=== PATIENT | female | born 1935 | race Caucasian/White ===

== ENCOUNTER 2019-11-25 12:31 | Emergency (ER) | payer MEDICARE, MEDICAID, SELFPAY ==
--- NOTE | 2019-11-25 12:37 | CT_ITS ---
WS: [id number] CT HEAD NONCONTRAST HISTORY: weakness TECHNIQUE: Contiguous axial imaging performed through the brain in 2.5 mm imaging. Bone and soft tiss ue windows. Sagittal and coronal reformats reviewed. All CT scans at [facility] use at ast one of these dose optimization techniques: automated exposure control; mA and/or kV adjustment pe r patient size (includes targeted exams where dose is matched to clinical indication); or iterative r econstruction. DLP: 547.62 mGy.cm COMPARISON: 09/27/2018 No acute intracranial hemorrhage, midline shift or mass effect. Mild symmetric atrophy similar to the prior study. There is additional mild chronic microvascular isc hemic changes in the periventricular white matter. Tiny lacunar infarct in the RIGHT frontal lobe. Ventricles: Normal size with no hydrocephalus. Paranasal sinuses: As visualized are clear. Mastoid air cells: Well pneumatized. Calvarium and scalp: Skull is intact with no soft tissue edema or swelling. Severe atherosclerosis in the distal vertebral and intracranial carotid arteries. CT/CT head wo con* [id number] IMPRESSION: 1. No acute intracranial hemorrhage or edema. 2. Atrophy and chronic microvascular ischemic disease is stable. 3. Severe atherosclerosis intracranial carotid and vertebral arteries.
--- NOTE | 2019-11-25 12:37 | XRR_ITS ---
PROCEDURE INFORMATION: Exam: XR Chest, 1 View Exam date and time: 11/25/2019 1:07 PM Age: 83 years old Clinical indication: Other: Weakness TECHNIQUE: Imaging protocol: XR of the chest Views: 1 view. COMPARISON: CR Chest 1 [place] [id number] 09/27/2018 5:41 PM FINDINGS: Lungs: Unremarkable. No consolidation. Pleural space: Unremarkable. No pleural effusion. No pneumothorax. Heart/Mediastinum: Unremarkable. No cardiomegaly. Bones/joints: Unremarkable. XR/XR chest 1V portable [id number] IMPRESSION: No acute findings.
[2019-11-25 12:38] VITALS: BP 176/85; PULSE 67; RESP 20; TEMP 36.6; O2SAT 99; BMI 20.2
--- NOTE | 2019-11-25 12:38 | ECG_ITS ---
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 Measurements Intervals [place] Rate: 72 P: 77 CA: 215 QRS: 13 QRSD: 93 T: 39 QT: 436 QTc: 480 Interpretive Statements SINUS RHYTHM WITH SINUS ARRHYTHMIA WITH FIRST DEGREE AV BLOCK LEFT VENTRICULAR HYPERTROPHY AND ST-T CHANGE [VOLTAGE CRITERIA PLUS ST/T ABNORMALITY] Compared to ECG 09/27/2018 20:49:40 First degree AV block now present Left ventricular hypertrophy now present ST (T wave) deviation now present Myocardial infarct finding no longer present Poor R-wave progression no longer present Electronically Signed On 11-25-2019 18:36:27 CDT by Anand Payan M.D. [id number]
[2019-11-25 12:46] LABS: Basophils # 0.1 10^3/uL (0.0-0.1); Basophils % 1.2 %; Eosinophils # 0.2 10^3/uL (0.0-0.8); Eosinophils % 1.8 %; Hematocrit 37.9 % (37.0-47.0); Hemoglobin 12.4 g/dL (11.5-15.3); Lymphocytes # 2.4 10^3/uL (0.8-4.8); Lymphocytes % 29.2 %; Mean Corpuscular HGB Conc 32.7 g/dL (30.0-36.0); Mean Corpuscular Hemoglobin 27.6 pg (28.0-34.0); Mean Corpuscular Volume 84.4 fL (81-99); Mean Platelet Volume 10.6 fL (7.4-10.4); Monocytes # 0.5 10^3/uL (0.2-0.9); Monocytes % 6.5 %; Neutrophils # 5.01 10^3/uL (1.8-7.7); Neutrophils % 61.2 %; Nucleated Red Blood Cells % 0 %; Platelet Count 172 10^3/cmm (130-400); Red Blood Count 4.49 10^6/uL (4.1-5.3); Red Cell Distribution Width 14.5 % (12.1-15.1); White Blood Count 8.2 10^3/uL (4.0-10.0)
[2019-11-25] MEDS: sodium chloride 0.9% 1,000 ML 999 ML IV (13:00)
[2019-11-25 13:17] LABS: Troponin(5th) Baseline 26 ng/L (0-10)
--- NOTE | 2019-11-25 13:17 | W.ED.CHESTPA ---
HPI - Chest Pain General: Chief Complaint: Chest Pain Stated Complaint: N/V Time Seen by Provider: 11/25/19 12:32 Source: patient and EMS Mode of arrival: EMS Limitations: no limitations History of Present Illness: HPI narrative: 83-year-old female states she has been having chest pain along with vomiting. She states she has had generalized weakness. She states she has had hypokalemia in the past this causes. Patient has weakness to all extremities. She has a mild headache. Denies any worsening or improving factors. Denies any fevers. Patient is a poor historian and is it is difficult to get a full history from her. Associated symptoms: Reports nausea and vomiting; Deny dyspnea or fever(s) Review of Systems Const: Denies: fever(s), chills, body aches or change in appetite Eyes: Denies: blurry vision or eye discomfort ENMT: Denies: throat pain or dental pain Card: Reports: chest pain Resp: Denies: dyspnea GI: Reports: nausea and vomiting : Denies: dysuria Musc: Reports: muscle weakness Skin/Breast: Denies: rash Neuro: Denies: headache(s) Psych: Denies: depression Kedar/Lymph: Denies: easy bruising All/Imm: Denies: urticaria Physical Exam Const: COMMON NORMALS: patient oriented x3 GENERAL APPEARANCE: ill appearing and frail appearing HENMT: COMMON NORMALS: normocephalic and atraumatic HEAD & SCALP: normocephalic and atraumatic Eye: COMMON NORMALS: Equal, round and reactive pupils present and EOMs intact bilaterally PUPIL: Yes Equal, round and reactive pupils present Neck/C-Spine: COMMON NORMALS: full ROM and supple Chest: COMMONS NORMALS: normal inspection of the chest and normal palpation of entire chest wall Resp: COMMON NORMALS: normal respiratory effort, No retractions, No use of accessory muscles and clear to auscultation bilaterally AUSCULTATION: clear to auscultation bilaterally Cardio: COMMON NORMALS: regular rate, regular rhythm and No murmurs present (Cardio) RATE: regular rate RHYTHM: regular rhythm GI: COMMON NORMALS: Normal to inspection, nondistended, normoactive bowel sounds present, Soft to palpation, non-tender and no masses PALPATION: Yes Soft to palpation Extremity: COMMON NORMALS: normal to inspection and full ROM Neuro: COMMON NORMALS: patient oriented x3 and no focal motor deficits OTHER: Weakness in all 4 extremities Psych: COMMON NORMALS: mental status grossly normal, Normal thought process present and cooperative THOUGHT PROCESS: Normal thought process present Skin: COMMON NORMALS: no rashes or lesions noted and no wounds GENERAL SKIN EXAM: no rashes or lesions noted Course Vital Signs: Vital signs: Vital Signs Temperature 97.8 F 11/25/19 12:38 Pulse Rate 90 11/25/19 15:33 Respiratory Rate 22 H 11/25/19 15:33 Blood Pressure 180/97 11/25/19 15:33 Pulse Oximetry 97 11/25/19 15:33 MDM - Chest Pain MDM Narrative: Medical decision making narrative: Patient presents here with generalized weakness that is since resolved. She had some slight confusion is resolved as well. She states that her gets this when her potassium is low. She states she has not been taking her potassium pills at home. Patient had mild chest pain this since resolved. Her lab work is all normal besides her low potassium. I did offer patient admission but she states she feels better does not want to stay in the hospital with coronavirus being around. She states she lives very close to the hospital lives with her daughter if she has any worsening she will return. I informed her that is very important she takes her meds as prescribed and she understands this. Lab Data: Labs: Lab Results 11/25/19 11/25/19 11/25/19 Range/Units 12:30 12:30 12:30 WBC 8.2 (4.0-10.0) 10^3/ uL RBC 4.49 (4.1-5.3) 10^6/u L Hgb 12.4 (11.5-15.3) g/dL Hct 37.9 (37.0-47.0) % MCV 84.4 (81-99) fL MCH 27.6 L (28.0-34.0) pg MCHC 32.7 (30.0-36.0) g/dL RDW 14.5 (12.1-15.1) % Plt Count 172 (130-400) 10^3/c mm MPV 10.6 H (7.4-10.4) fL Neut % (Auto) 61.2 % Lymph % (Auto) 29.2 % [place] % (Auto) 6.5 % Eos % (Auto) 1.8 % Baso % (Auto) 1.2 % Neut # (Auto) 5.01 (1.8-7.7) 10^3/u L Lymph # (Auto) 2.4 (0.8-4.8) 10^3/u L [place] # (Auto) 0.5 (0.2-0.9) 10^3/u L Eos # (Auto) 0.2 (0.0-0.8) 10^3/u L Baso # (Auto) 0.1 (0.0-0.1) 10^3/u L Nucleated RBC % (a uto) 0 % Nucleated RBCs # 0.0 /100WBC PT 11.30 L (12.1-14.9) SECO NDS INR 0.80 (0.8-1.2) Sodium 138 (136-145) mmol/L Potassium 2.7 L* (3.5-5.1) mmol/L Chloride 101 (98-107) mmol/L Carbon Dioxide 20 L (22-29) mmol/L Anion Gap 19.7 H (5-19) BUN 9 (8-23) mg/dL Creatinine 1.3 H (0.5-0.9) mg/dL GFR Calculation Not Reportable Glucose 168 H (65-115) mg/dL Calculated Osmolal ity 289 (285-295) mOsm/k g Calcium 10.8 H (8.5-10.5) mg/dL Magnesium 2.2 (1.7-2.3) mg/dL Total Bilirubin 1.0 (0.15-1.2) mg/dL AST 24 (0-32) U/L ALT 14 (0-33) U/L Alkaline Phosphata se 69 (35-105) IU/L Troponin T Baselin e (0-10) ng/L Troponin T 120 Min helen (0-10) ng/L Delta Troponin T (0-10) ABS# Total Protein 7.1 (6.6-8.7) g/dL Albumin 4.7 (3.5-5.2) g/dL Globulin 2.4 (1.3-4.6) g/dL Lipase 31 (13-60) U/L 11/25/19 11/25/19 Range/Units 12:30 14:30 WBC (4.0-10.0) 10^3/ uL RBC (4.1-5.3) 10^6/u L Hgb (11.5-15.3) g/dL Hct (37.0-47.0) % MCV (81-99) fL MCH (28.0-34.0) pg MCHC (30.0-36.0) g/dL RDW (12.1-15.1) % Plt Count (130-400) 10^3/c mm MPV (7.4-10.4) fL Neut % (Auto) % Lymph % (Auto) % [place] % (Auto) % Eos % (Auto) % Baso % (Auto) % Neut # (Auto) (1.8-7.7) 10^3/u L Lymph # (Auto) (0.8-4.8) 10^3/u L [place] # (Auto) (0.2-0.9) 10^3/u L Eos # (Auto) (0.0-0.8) 10^3/u L Baso # (Auto) (0.0-0.1) 10^3/u L Nucleated RBC % (a uto) % Nucleated RBCs # /100WBC PT (12.1-14.9) SECO NDS INR (0.8-1.2) Sodium (136-145) mmol/L Potassium (3.5-5.1) mmol/L Chloride (98-107) mmol/L Carbon Dioxide (22-29) mmol/L Anion Gap (5-19) BUN (8-23) mg/dL Creatinine (0.5-0.9) mg/dL GFR Calculation Glucose (65-115) mg/dL Calculated Osmolal ity (285-295) mOsm/k g Calcium (8.5-10.5) mg/dL Magnesium (1.7-2.3) mg/dL Total Bilirubin (0.15-1.2) mg/dL AST (0-32) U/L ALT (0-33) U/L Alkaline Phosphata se (35-105) IU/L Troponin T Baselin e 26 H (0-10) ng/L Troponin T 120 Min helen 22.64 H (0-10) ng/L Delta Troponin T -3.36 L (0-10) ABS# Total Protein (6.6-8.7) g/dL Albumin (3.5-5.2) g/dL Globulin (1.3-4.6) g/dL Lipase (13-60) U/L Imaging Data^: CXR: Attestation: I personally reviewed and interpreted this imaging study as follows: My impression: no acute abnormality CT Head: Attestation: I personally reviewed and interpreted this imaging study as follows: Radiologist's impression: [address] [place] [place] [address] CT Scan Report Signed Patient: Yissel Muñiz Unit #: [id number] : 1935 Age/Sex: 83 / F ADM Date: 11/25/19 Loc: ER Room/Bed: Attending Dr: Ordering Provider/Ordering MD: Kalen Khan MD Date of Service: 11/25/19 Procedure(s): CT head wo con* [id number] Accession Number(s): [id number] Report Number: [id number] WS: [id number] CT HEAD NONCONTRAST HISTORY: weakness TECHNIQUE: Contiguous axial imaging performed through the brain in 2.5 mm imaging. Bone and soft tissue windows. Sagittal and coronal reformats reviewed. All CT scans at [facility] use at least one of these dose optimization techniques: automated exposure control; mA and/or kV adjustment per patient size (includes targeted exams where dose is matched to clinical indication); or iterative reconstruction. DLP: 547.62 mGy.cm COMPARISON: 09/27/2018 No acute intracranial hemorrhage, midline shift or mass effect. Mild symmetric atrophy similar to the prior study. There is additional mild chronic microvascular ischemic changes in the periventricular white matter. Tiny lacunar infarct in the RIGHT frontal lobe. Ventricles: Normal size with no hydrocephalus. Paranasal sinuses: As visualized are clear. Mastoid air cells: Well pneumatized. Calvarium and scalp: Skull is intact with no soft tissue edema or swelling. Severe atherosclerosis in the distal vertebral and intracranial carotid arteries. CT/CT head wo con* [id number] IMPRESSION: 1. No acute intracranial hemorrhage or edema. 2. Atrophy and chronic microvascular ischemic disease is stable. 3. Severe atherosclerosis intracranial carotid and vertebral arteries. EKG Data^: EKG 1: Attestation: I personally reviewed and interpreted this EKG as follows: EKG interpretation date: 11/25/19 EKG interpretation time: 12:48 Interpretation: nsr hr [address] and t wave abnormalities qrs 93 qtc 461 Discharge Plan Discharge Patient Disposition: Home Clinical Impression: Atypical chest pain, Hypokalemia Condition: Stable Prescriptions: No Action furosemide 40 mg tablet 20 mg PO DAILY RF: 0 trazodone 50 mg tablet 25 mg PO BEDTIME RF: 0 cetirizine 10 mg tablet 10 mg PO DAILY PRN (Reason: Allergy Symptoms) RF: 0 isosorbide mononitrate 30 mg tablet extended release 24 hr 30 mg PO DAILY RF: 0 amlodipine 2.5 mg tablet 2.5 mg PO DAILY RF: 0 Klor-Con M20 20 mEq tablet,ER particles/crystals 10 meq PO DAILY RF: 0 metoprolol tartrate 50 mg tablet 25 mg PO BID RF: 0 nitroglycerin 0.4 mg tablet, sublingual 0.4 mg sublingual DAILY PRN (Reason: Chest Pain) RF: 0 omeprazole 20 mg capsule,delayed release(DR/EC) 20 mg PO DAILY RF: 0 montelukast 10 mg tablet 10 mg PO DAILY PRN (Reason: Allergic Reaction) RF: 0 acetaminophen-codeine 300-60 mg tablet 0.5 tab PO TID PRN (Reason: Pain) RF: 0 timolol maleate 0.5 % drops 1 drp ophthalmic (eye) BID RF: 0 rosuvastatin 40 mg tablet 40 mg PO DAILY RF: 0 lactulose 10 gram/15 mL solution 15 ml PO DAILY PRN (Reason: Constipation) RF: 0 Lumigan 0.01 % drops 1 drp ophthalmic (eye) BEDTIME RF: 0 Discharge Orders: Discharge Order (Routine); Ordered 11/25/19 Ordered By: Kalen Khan Referrals: Nadeem Collins MD [Primary Care Provider] - 1-3 days Discharge Diet: Advance as tolerated Discharge Activity: Resume usual activity Patient Instructions: Hypokalemia (ED) Discharge Date/Time: 11/25/19 15:34 Coding Level of Care Code ED Sheriffs Detective for Chg Fwd Exam Comprehensive
[2019-11-25 13:18] LABS: Alanine Aminotransferase 14 U/L (0-33); Albumin Level 4.7 g/dL (3.5-5.2); Alkaline Phosphatase 69 IU/L (35-105); Anion Gap 19.7 (5-19); Aspartate Amino Transferase 24 U/L (0-32); Blood Urea Nitrogen 9 mg/dL (8-23); Calcium 10.8 mg/dL (8.5-10.5); Carbon Dioxide 20 mmol/L (22-29); Chloride 101 mmol/L (98-107); Globulin 2.4 g/dL (1.3-4.6); Glucose 168 mg/dL (65-115); Lipase 31 U/L (13-60); Magnesium 2.2 mg/dL (1.7-2.3); Osmolality Calculated 289 mOsm/kg (285-295); Sodium 138 mmol/L (136-145); Total Protein 7.1 g/dL (6.6-8.7)
[2019-11-25 13:23] LABS: Potassium 2.7 mmol/L (3.5-5.1)
--- NOTE | 2019-11-25 13:24 | CT_ITS ---
WS: [id number] CT ABDOMEN AND PELVIS WITH CONTRAST HISTORY: Abdominal pain. TECHNIQUE: Imaging performed of the abdomen and pelvis with IV contrast. Single phase imaging of the abdomen. Coronal and sagittal reformats are submitted. All CT scans at [facility] use at least one of these dose optimization techniques: automated exposure control; mA and/or kV adjustment per patient size (includes targeted exams where dose is matched to clinical indication); or iterativ e reconstruction. IV CONTRAST: Visipaque 320; 95 mL IV. Oral contrast: No DLP: 239.84 mGy.cm COMPARISON: 01/03/2019, 08/11/2017 Lower thorax: Chronic linear atelectasis at the lung bases. Moderately enlarged chambers. Numerous surgical sutures at the GE junction. May be from prior hernia repair. Liver/biliary system: Liver is normal size. Central bile duct dilatation, similar to the prior studie s and probably on the basis of cholecystectomy. Common bile duct measures up to 12 mm. Gallbladder: Status post cholecystectomy. Pancreas: Markedly atrophic pancreas. Spleen: Normal. Adrenal glands: Normal. Right kidney: Atrophied RIGHT kidney with a soft tissue mass in the upper renal pelvis measuring 1.7 x 3.0 cm. There is adjacent cortical thinning and scarring. There was an area of hemorrhage in this l ocation on a prior CT from 08/11/2017. Left kidney: Multifocal areas of cortical scarring. Mild atrophy of the kidney and a few small subcen timeter cysts. There is an extrarenal pelvis. No obstruction. Aorta: Extensive atherosclerosis. Ectasia and mild dilatation with no significant aneurysm. Lymphadenopathy: None. Free fluid: None. GI tract: There is mild diffuse fecal retention. Small amount of increased fluid in the small bowel b ut no obstructive pattern. The appendix is normal. Abdominal wall: Unremarkable abdominal wall. No hernia. Pelvis: Well-distended urinary bladder. Small bladder diverticulum to the RIGHT. Bones: Severe osteopenia. Numerous biconcave fractures in the lumbar spine including L1-L4 and T12. CT/CT abdomen pelvis w con* [id number] IMPRESSION: 1. Prior cholecystectomy with chronic common bile duct dilatation which is pro bably physiologic. 2. Soft tissue mass upper pole RIGHT kidney measures 1.7 x 1.3 cm. Urothelial mass is not excluded. No obstruction. Differential includes hematoma and less l ikely complex parapelvic cyst. 3. Mild bilateral renal atrophy. 4. Extensive atherosclerosis aorta and mesenteric arteries. 5. No GI tract obstruction. No free air identified.
--- NOTE | 2019-11-25 13:48 | PC.NURSE ---
It is also reported that patient takes Lasix, but is non-compliant with her potassium.
[2019-11-25] MEDS: iodixanol 320 mg/mL 100mL Btl IV (13:57)
[2019-11-25] MEDS: potassium chloride ER 10 mEq Tablet 40 MEQ PO (14:02)
[2019-11-25 14:05] VITALS: BP 160/82; PULSE 73; RESP 18; O2SAT 95
--- NOTE | 2019-11-25 14:38 | ECG_ITS ---
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 Measurements Intervals [place] Rate: 80 P: 75 CA: 263 QRS: 15 QRSD: 95 T: 60 QT: 388 QTc: 448 Interpretive Statements SINUS RHYTHM WITH FIRST DEGREE AV BLOCK SEPTAL MYOCARDIAL INFARCTION [40+ ms Q WAVE IN V1/V2], PROBABLY OLD INFERIOR MYOCARDIAL INFARCTION [40+ ms Q WAVE AND/OR ST/T ABNORMALITY IN II/aVF], PROBABLY OLD Compared to ECG 11/25/2019 12:48:49 Myocardial infarct finding now present Sinus arrhythmia no longer present Left ventricular hypertrophy no longer present ST (T wave) deviation no longer present Electronically Signed On 11-25-2019 18:37:45 CDT by Anand Payan M.D. [id number]
[2019-11-25 14:56] LABS: Troponin 5 2HR 22.64 ng/L (0-10)
[2019-11-25 14:57] LABS: Troponin 5 2HR Delta -3.36 ABS# (0-10)
[2019-11-25 15:33] VITALS: BP 180/97; PULSE 90; RESP 22; O2SAT 97
== END 2019-11-25 15:34 | disposition home or self-care (01) ==
PROVIDERS: Emergency Provider Emergency Medicine; PCP Family Medicine
DX: R07.89 Other chest pain (principal); E87.6 Hypokalemia
CPT/HCPCS: 12345; 36415; 70450; 71045; 74177; 80053; 83690; 83735; 84484; 85025; 85610; 93005; 96360; 99282; 99284; J7030; Q9967

== ENCOUNTER 2020-05-03 10:06 | Outpatient (CLI) | payer MEDICARE, MEDICAID, SELFPAY ==
--- NOTE | 2020-05-03 10:16 | MR_ITS ---
WS: [id number] MRI HEAD WITHOUT CONTRAST TECHNIQUE: Sagittal T1, T2 axial, T2 axial FLAIR, axial and coronal T1 images, axial susceptibility w eighted imaging, axial diffusion weighted images, and coronal T2 images were obtained. Patient refuse d contrast. Patient claustrophobic and unable to finish examination. CLINICAL INFORMATION: DIPLOPIA;CEREBRAL INFARCTION COMPARISON: None. FINDINGS: No evidence of restricted diffusion to suggest acute ischemia. Ventricular system and basal cisterns are patent. Moderate small vessel changes with moderate parenchymal volume loss. Chronic lacunar infa rcts in the periventricular white matter and castillo radiata. Small vessel changes in the darvin. Normal posterior fossa. Normal vascular flow voids at the skull base. No extra-axial fluid collections. No evidence of mass o r mass effect. Mild mucosal thickening in the paranasal sinuses. Mild to moderate symmetric atrophy i nvolving the temporal lobes and hippocampal formations. Normal optic chiasm and pituitary infundibulum. Normal cavernous sinuses and Meckel's cave. No hemosi gabrielle on susceptibly weighted images. MR/MR head wo con* [id number] IMPRESSION: 1. No evidence of restricted diffusion to suggest acute ischemia. 2. Moderate small vessel changes with moderate parenchymal volume loss. 3. Chronic lacunar infarcts in the castillo radiata and periventricular white ma tter. 4. No hemosiderin on susceptibly weighted images. 5. Mild to moderate symmetric atrophy involving the temporal lobes and hippoca mpal formations. 6. Normal optic chiasm and pituitary infundibulum.
[2020-05-03 11:30] LABS: Blood Urea Nitrogen 11 mg/dL (8-23)
== END 2020-05-03 10:07 | disposition home or self-care (01) ==
PROVIDERS: Radiology Neuroradiology; PCP Family Medicine; Visit Provider Ophthalmology
DX: H53.2 Diplopia (principal); I63.9 Cerebral infarction, unspecified; G31.9 Degenerative disease of nervous system, unspecified
CPT/HCPCS: 70551; 82565; 84520

== ENCOUNTER 2021-01-22 10:14 | Inpatient (IN) | payer MEDICARE, MEDICAID, SELFPAY ==
[2021-01-22] VITALS (21 sets, daily range): BP systolic 56–116; BP diastolic 37–61; PULSE 0–133; RESP 18–22; TEMP 36.8–37.1; O2SAT 56–96; BMI 23.4
--- NOTE | 2021-01-22 10:21 | CTR_ITS ---
PROCEDURE INFORMATION: Exam: CT Chest Without Contrast; Diagnostic Exam date and time: 01/22/2021 10:21 AM Age: 85 years old Clinical indication: Patient HX: Abdominal pain/sob TECHNIQUE: Imaging protocol: Diagnostic computed tomography of the chest without contrast. Radiation optimization: All CT scans at this facility use at least one of these dose optimization techniques: automated exposure control; mA and/or kV adjustment per patient size (includes targeted exams where dose is matched to clinical indication); or iterative reconstruction. COMPARISON: CTA Chest-Pulmonary Emb [id number] 07/31/2017 7:46 AM RADIATION DOSE METRICS: Total DLP (mGy-cm): 1021.57 FINDINGS: Lungs: Diffuse bilateral parenchymal lung densities with air bronchograms . These findings correspond to alveolar pneumonia. These findings are present in the bilateral upper lobes, perihilar regions, and lower lobes. consistent with Pleural spaces: Unremarkable. No pneumothorax. Bilateral lower lobe opacities likely pleural effusions. pleural effusion. Heart: Heavy coronary artery calcifications.. No cardiomegaly. No pericardial effusion. Aorta: Unremarkable. No aortic aneurysm. Lymph nodes: Unremarkable. No enlarged lymph nodes. Bones/joints: Osteoarthritis, osteopenia, and compression fractures at T8 and T12 these findings were present on prior examination and appears similar.. Soft tissues: Unremarkable IMPRESSION: 1. Bilateral parenchymal lung densities as described consistent with pneumonia. 2. Bilateral lower lobe opacity consistent with pleural effusions. 3. Heavy coronary artery calcifications PROCEDURE INFORMATION: Exam: CT Abdomen And Pelvis Without Contrast Exam date and time: 01/22/2021 10:21 AM Age: 85 years old Clinical indication: Patient HX: Abdominal pain/sob TECHNIQUE: Imaging protocol: Computed tomography of the abdomen and pelvis without contrast. Radiation optimization: All CT scans at this facility use at least one of these dose optimization techniques: automated exposure control; mA and/or kV adjustment per patient size (includes targeted exams where dose is matched to clinical indication); or iterative reconstruction. COMPARISON: CTA Chest-Pulmonary Emb [id number] 07/31/2017 7:46 AM RADIATION DOSE METRICS: Total DLP (mGy-cm): 1021.57 FINDINGS: Liver: There is hepatomegaly the liver span is 17 cm. No focal mass lesions or dilated bile ducts seen. Gallbladder and bile ducts: Status post cholecystectomy Pancreas: Normal. No ductal dilation. Spleen: Normal. No splenomegaly. Adrenal glands: Right adrenal is normal No mass. The left adrenal is not well visualized Kidneys and ureters: Normal. No hydronephrosis. Stomach and bowel: Metallic surgical clips seen adjacent to the of lateral stomach. No obstruction. No mucosal thickening. Appendix: No evidence of appendicitis. Intraperitoneal space: Unremarkable. No free air. No significant fluid collection. Vasculature: The aorta is calcified and ectatic. No abdominal aortic aneurysm. Lymph nodes: Unremarkable. No enlarged lymph nodes. Urinary bladder: Unremarkable as visualized. Reproductive: A normal uterus is not visible consistent with hysterectomy.. Bones/joints: There are multiple compression fractures in the lumbar spine L4, L3, L2, L1, and T12. Comparison to prior examination these findings were present at that time. Soft tissues: Unremarkable. CT/CT chest abd pel wo con IMPRESSION: 1. No acute findings. 2. Metallic surgical clips around the stomach. 3. Hepatomegaly 4. Cholecystectomy 5. Hysterectomy 6. Calcified ectatic aorta without aneurysm . 7. Multiple dorsolumbar are compression fractures Radiation Dose CTDIVOL = (mGy): DLP = 1021.57~1021.57 (mGy-cm)
--- NOTE | 2021-01-22 10:21 | XRR_ITS ---
PROCEDURE INFORMATION: Exam: XR Chest Exam date and time: 01/22/2021 10:21 AM Age: 85 years old Clinical indication: Dyspnea TECHNIQUE: Imaging protocol: XR of the chest. Views: 1 view. COMPARISON: CR XR chest 1V portable [id number] 11/25/2019 12:57 PM FINDINGS: Lungs: Interstitial congestion is seen in the left lower lobe. This finding has increased since prior examination. No consolidation. Pleural spaces: Unremarkable. No pleural effusion. No pneumothorax. Heart/Mediastinum: Unremarkable. No cardiomegaly. Bones/joints: Unremarkable. Intraperitoneal space: Metallic surgical clips left upper quadrant of the abdomen. XR/XR chest 1V portable [id number] IMPRESSION: 1. Left lower lobe interstitial congestion increased since prior 2. No acute findings. 3. Metallic surgical clips left upper quadrant . Radiation Dose CTDIVOL = (mGy): DLP = (mGy-cm)
--- NOTE | 2021-01-22 10:24 | ECG_ITS ---
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1935 Requested By: Esthela Reece Order Number: [id number] Angie MD: JAYJAY SIMENTAL Measurements Intervals [place] Rate: 102 P: [place]: QRS: 7 QRSD: 92 T: 89 QT: 322 QTc: 421 Interpretive Statements ATRIAL FIBRILLATION WITH RAPID VENTRICULAR RESPONSE NONSPECIFIC ST & T-WAVE ABNORMALITY ABNORMAL RHYTHM ECG INTERPRETATION BASED ON A DEFAULT AGE OF 40 YEARS Compared to ECG 11/25/2019 15:07:01 T-wave abnormality now present Sinus rhythm no longer present First degree AV block no longer present Myocardial infarct finding no longer present Electronically Signed On 01-23-2021 12:54:05 DELINQUENCY PREVENTION OFFICER by JAYJAY SIMENTAL [id number]
--- NOTE | 2021-01-22 10:27 | ED_ITS ---
HPI - Weakness General: Chief complaint: Weakness Stated complaint: WEAKNESS Time Seen by Provider: 01/22/21 10:15 Source: patient and EMS Mode of arrival: EMS Limitations: no limitations History of Present Illness: HPI Narrative: Mrs. Ruvalcaba is a nice 85-year-old female poor historian with a history of hypertension, reflux disease, hyperlipidemia, TIA, chronic low back pain, glaucoma, osteoarthritis, diastolic dysfunction, mitral valve disease who comes in with complaints of generalized weakness for 1 week. She denies any fever. She not been eating or drinking as much as she normally would. She states her abdomen hurts and she feels nauseous and she is been vomiting. She denies any diarrhea but states she had a normal bowel movement today. Her bowel in which been nonbloody and her vomiting has been nonbloody as well. Denies any chest pain but admits to chronic shortness of breath. She denies any fevers or chills. She does have a significant sore throat. Patient denies any fevers denies any known ill contacts. Is not aware of anything that makes her symptoms better or worse. Associated symptoms: Reports headache(s), nausea and vomiting; Denies chest pain, chills, confusion, melena, diaphoresis, dysuria, easy bruising, fever(s) or syncope Review of Systems Const: Reports: body aches, fatigue and malaise; Denies: fever(s), chills or diaphoresis Eyes: Denies: change in vision, blurry vision, photophobia, eye discomfort, eye discharge, eye redness or yellow eyes ENMT: Reports: throat pain; Denies: odynophagia, hoarseness, swelling of lips/tongue, ear or mastoid pain, ear discharge, change in hearing or nasal discharge Card: Reports: dyspnea on exertion; Denies: chest pain, palpitations, irregular heart rhythm, edema, ligh theadedness, syncope, pre-syncope or orthopnea Resp: Reports: dyspnea, non-productive cough and wheezing; Denies: productive cough, hemoptysis or chest congestion GI: Reports: abdominal pain, nausea and vomiting; Denies: hematemesis, coffee ground emesis, heartburn, diarrhea, constipation, GI cramping, hematochezia or melena : Denies: flank pain, dysuria, urinary frequency, urinary urgency or hematuria Musc: Reports: extremity pain and joint pain; Denies: neck pain, back pain, extremity swelling, joint swelling, joint redness, joint warmth or joint stiffness Skin/Breast: Denies: rash, pruritus, erythema, skin pain or skin tenderness Neuro: Reports: headache(s); Denies: numbness in extremities, weakness in extremities, sensory changes, lack of coordination, difficulty walking, dizziness, vertigo, confusion, Slurred speech present or seizure-like activity Kedar/Lymph: Denies: easy bruising, easy bleeding, petechiae, purpura or enlarged lymph nodes All/Imm: Denies: urticaria, throat swelling, tongue swelling, facial swelling or acute wheezing PFSH ED PFSH: Medical History COPD (chronic obstructive pulmonary disease) Coronary artery disease DM type 2 (diabetes mellitus, type 2) Hyperlipidemia Obstructive sleep apnea Osteoarthritis Physical Exam Const: COMMON NORMALS: no acute distress, patient oriented x3, no limitations and alert GENERAL APPEARANCE: cooperative HENMT: COMMON NORMALS: normocephalic, atraumatic, external ears normal, EAC's normal and Normal external nose present HEAD & SCALP: normal to inspection, normocephalic and atraumatic FACE & SINUS: normal facial exam and face symmetric NOSE: Normal external nose present and Normal nares present EXTERNAL EAR: Yes external ears normal EXTERNAL AUDITORY CANAL: EAC's normal MOUTH: Normal oral and palatal mucosa present, lip normal and tongue normal Eye: COMMON NORMALS: Equal, round and reactive pupils present and conjunctivae normal GENERAL EYE: appearance normal, both eyes and all related structures ALIGNMENT: Yes alignment normal PERIORBITAL: periorbital findings normal EYELID: eyelids normal CONJUNCTIVA: Yes conjunctivae normal SCLERA: sclerae normal PUPIL: Yes Equal, round and reactive pupils present Neck/C-Spine: COMMON NORMALS: full ROM, no lymphadenopathy, supple, no meningeal signs and no JVD GENERAL: Yes normal visual inspection and Yes trachea midline Chest: COMMONS NORMALS: normal inspection of the chest and normal palpation of entire chest wall Resp: COMMON NORMALS: normal respiratory effort, No retractions, No use of accessory muscles and clear to auscultation bilaterally EFFORT & INSPECTION: Yes able to speak in complete sentences and Yes symmetric chest movement AUSCULTATION: clear to auscultation bilaterally, no crackles, no rales, no rhonchi and no wheezes Cardio: COMMON NORMALS: no JVD, regular rate, regular rhythm, S1 normal heart sound present and S2 normal heart sound present RATE: regular rate RHYTHM: regular rhythm HEART SOUNDS: S1 normal heart sound present, S2 normal heart sound present, no click, no gallops, no murmurs and no rubs GI: COMMON NORMALS: Soft to palpation and No hepatosplenomegaly present PALPATION: Yes Soft to palpation, Yes Tenderness to palpation present (GI) (Mild diffusely without rebound or guarding.), No Guarding due to palpation present (GI), No Rigid due to palpation, Yes No hepatosplenomegaly present, No Hernia present, No Palpable mass present and No Pulsatile mass present : COMMON NORMALS: Yes no CVA tenderness BLADDER/KIDNEY EXAM: Yes no CVA tenderness EXTERNAL FEMALE EXAM: No Hernia present Back/Pelvis: COMMON NORMALS: no CVA tenderness, thoracic and lumbar spine normal to inspection, no thoracic nor lumbar tenderness and thoraco-lumbar ROM normal Extremity: COMMON NORMALS: normal to inspection, full ROM, capillary refill normal, no joint enlargement, no clubbing, cyanosis or edema and no calf tenderness Neuro: COMMON NORMALS: patient oriented x3, CN's II-XII intact bilaterally, moves all extremities, no focal motor deficits and no sensory deficits noted SENSORIUM/ORIENTATION: Yes alert MENINGEAL SIGNS: Yes no meningeal signs SPEECH: speech normal Psych: COMMON NORMALS: mental status grossly normal, Normal thought process present, cooperative, normal affect, speech normal and activity/motor behavior normal SPEECH: Yes normal speech THOUGHT PROCESS: Normal thought process present Skin: COMMON NORMALS: no rashes or lesions noted, turgor normal, no jaundice, no petechiae and no mottling GENERAL SKIN EXAM: no rashes or lesions noted and turgor normal Procedures Intubation sedative: Etomidate Mg Given: 20 paralytic: Vecuronium Mg Given: 10 Laryngoscope: Grace ET Tube Size: 8 ET Tube Uncuffed: Yes Tube Secured Depth (cm): 21 Tube Secured Location: lips Tube Placement Confirmation: visualized tube passing through cords, equal breath sounds bilaterally, no breath sounds over epigastrium and confirmation by capnometry Patient Tolerated Procedure: no complications Intubation Complications: none Additional Comments: ET tube placement with +5 point asked her exam and appropriate positioning on chest x-ray. Course ED course: 1345 -I was in talking with the patient after completing a rectal exam to evaluate for her anemia. As I was talking to the patient at the nursing present she suddenly became unresponsive. We looked on the board and apparently she had gone into ventricular fibrillation. She had no significant organized activity nothing that looked like V. tach. A code was called. Please see the code note but the patient was defibrillated once and received 1 dose of epi. She returned with a spontaneous pulse that was atrial fibrillation in nature. She did not respond mentally so an ET tube was placed. Family was notified of the patient's condition. 3069 -Case and condition of patient reviewed with Dr. Ochoa, he agrees admit to the ICU. He understands that CT scans are pending and we are treating the pat ient's hyperglycemia, hypokalemia, hypomagnesemia and hypocalcemia. 4041 -Dr. Ochoa here in the ER to assume care for the patient. He understands CT scan results are pending. Vital Signs: Vital signs: Vital Signs Temperature 98.7 F 01/22/21 10:18 Pulse Rate 91 01/22/21 12:00 Respiratory Rate 18 01/22/21 10:48 Blood Pressure 87/49 01/22/21 12:00 Pulse Oximetry 96 01/22/21 10:18 MDM - Weakness MDM Narrative: Medical decision making narrative: Yissel is an 85-year-old female that I think had a hard time communicating what happened to her this past week. I been talking to family now who state that they have not heard from her in quite some time until just yesterday which over the phone she told him that she had been sick. They really could not figure out more than this other than they told her to rest and to drink plenty of fluids. I believe the patient likely got Covid over a week ago and has not been eating or drinking and is likely had diarrhea. Here she had transient hypotension but responded to IV fluids and was loaded with empiric antibiotics. Her Covid test along with her electrolytes came back later in her ER stay secondary to phlebotomy having a hard time getting blood. We immediately addressed her sodium issue, potassium issue, magnesium issue and hypoglycemia. I believe likely the hypokalemia and hypomagnesemia caused the spontaneous ventricular fibrillation. We were fortunate enough to be witness to this directly and immediately called a code and the patient was resuscitated after 1 dose of epi and 1 defibrillation. The patient then did go into rapid A. fib but her heart rate is slowly coming down. Her pressure is good at this time with a map above 65. At this point knowing the patient would have to go to the ICU I involved Dr. Ochoa who came down to the ER immediately to see the patient. He is assumed care. CT scans are pending at this time. I have discussed the case with the family understand her prognosis is poor but they still would like everything to be done until they can discuss further. Dr. Ochoa is aware and will continue to manage to the ICU. Lab Data: Attestation: I reviewed the patient's lab results. Labs: Lab Results 01/22/21 01/22/21 01/22/21 10:36 12:00 12:00 WBC 2.9 10^3/uL L 10^ 3/uL (4.0-10.0) RBC 3.14 10^6/uL L 10 ^6/uL (4.1-5.3) Hgb 9.4 g/dL L g/dL (11.5-15.3) Hct 28.8 % L % (37.0-47.0) MCV 91.7 fl fl (81-99) MCH 29.9 pg pg (28.0-34.0) MCHC 32.6 g/dL g/dL (30.0-36.0) RDW 13.6 % % (12.1-15.1) Plt Count 73 10^3/cmm L 10^ 3/cmm (130-400) MPV 11.5 fL H fL (7.4-10.4) Neut % (Auto) 52.8 % % Lymph % (Auto) 7.7 % % Fisher % (Auto) 1.4 % % Eos % (Auto) 0.0 % % Baso % (Auto) 0.0 % % Neut # (Auto) 1.51 10^3/uL L 10 ^3/uL (1.8-7.7) Lymph # (Auto) 0.2 10^3/uL L 10^ 3/uL (0.8-4.8) Fisher # (Auto) 0.0 10^3/uL L 10^ 3/uL (0.2-0.9) Eos # (Auto) 0.0 10^3/uL 10^3/ uL (0.0-0.8) Baso # (Auto) 0.0 10^3/uL 10^3/ uL (0.0-0.1) Nucleated RBC % (a uto) 0 % % Nucleated RBCs # 0.0 /100WBC /100W BC PT 14.30 SECONDS SEC ONDS (12.1-14.9) INR 1.08 (0.8-1.2) APTT 33.8 SECONDS SECO NDS (23.9-36.7) Sodium Potassium Chloride Carbon Dioxide Anion Gap BUN Creatinine GFR Calculation Glucose Calculated Osmolal ity Lactic Acid Lactic Acid (Sepsi s) Calcium Magnesium Total Bilirubin AST ALT Alkaline Phosphata se Creatine Kinase Troponin T Baselin e Total Protein Albumin Globulin Lipase TSH Free T4 Urine Color Yellow (Yellow) Urine Appearance Cloudy (CLEAR) Urine pH 7 (5-7) Ur Specific Gravit y 1.005 (1.005-1.030) Urine Protein 1+ H (Negative) Urine Glucose (UA) Norm (Normal) Urine Ketones Negative (Negative) Urine Blood 3+ H (Negative) Urine Nitrate Negative (Negative) Urine Bilirubin Neg (Negative) Urine Urobilinogen Norm mg/dL mg/dL (Negative) Ur Leukocyte Zonia ase Negative (Negative) Urine RBC 5-10 /hpf H /hpf (0-2) Urine WBC 5-10 /hpf H /hpf (0-5) Ur Squamous Epith Cells 0-4 /hpf H /hpf (0-5) Amorphous Sediment Not Reportable Urine Bacteria 4+ /hpf H /hpf (NONE) Serum Ketones SARS-CoV-2 Ag (Rap id) 01/22/21 01/22/21 01/22/21 12:00 12:00 12:00 WBC RBC Hgb Hct MCV MCH MCHC RDW Plt Count MPV Neut % (Auto) Lymph % (Auto) Fisher % (Auto) Eos % (Auto) Baso % (Auto) Neut # (Auto) Lymph # (Auto) Fisher # (Auto) Eos # (Auto) Baso # (Auto) Nucleated RBC % (a uto) Nucleated RBCs # PT INR APTT Sodium 129 mmol/L L mmol /L (136-145) Potassium 2.0 mmol/L L* mmo l/L (3.5-5.1) Chloride 91 mmol/L L mmol/ L (98-107) Carbon Dioxide 18 mmol/L L mmol/ L (22-29) Anion Gap 22.0 H (5-19) BUN 36 mg/dL H mg/dL (8-23) Creatinine 3.4 mg/dL H mg/dL (0.5-0.9) GFR Calculation Not Reportable Glucose 44 mg/dL L mg/dL (65-115) Calculated Osmolal ity 273 mOsm/kg L mOs m/kg (285-295) Lactic Acid 4.4 mmol/L H* mmo l/L (0.5-2.2) Lactic Acid (Sepsi s) Calcium 6.9 mg/dL L mg/dL (8.5-10.5) Magnesium 1.6 mg/dL L mg/dL (1.7-2.3) Total Bilirubin 0.8 mg/dL mg/dL (0.15-1.2) AST 101 U/L H U/L (0-32) ALT 23 U/L U/L (0-33) Alkaline Phosphata se 51 IU/L IU/L (35-105) Creatine Kinase 1803 U/L H* U/L (26-192) Troponin T Baselin e Total Protein 4.0 g/dL L g/dL (6.6-8.7) Albumin 2.5 g/dL L g/dL (3.5-5.2) Globulin 1.5 g/dL g/dL (1.3-4.6) Lipase 13 U/L U/L (13-60) TSH 0.44 uIU/mL uIU/m L (0.27-4.20) Free T4 1.29 ng/dL ng/dL (0.82-1.77) Urine Color Urine Appearance Urine pH Ur Specific Gravit y Urine Protein Urine Glucose (UA) Urine Ketones Urine Blood Urine Nitrate Urine Bilirubin Urine Urobilinogen Ur Leukocyte Zonia ase Urine RBC Urine WBC Ur Squamous Epith Cells Amorphous Sediment Urine Bacteria Serum Ketones Negative (Negative) SARS-CoV-2 Ag (Rap id) 01/22/21 01/22/21 01/22/21 12:00 12:14 13:41 WBC RBC Hgb Hct MCV MCH MCHC RDW Plt Count MPV Neut % (Auto) Lymph % (Auto) Fisher % (Auto) Eos % (Auto) Baso % (Auto) Neut # (Auto) Lymph # (Auto) Fisher # (Auto) Eos # (Auto) Baso # (Auto) Nucleated RBC % (a uto) Nucleated RBCs # PT INR APTT Sodium Potassium Chloride Carbon Dioxide Anion Gap BUN Creatinine GFR Calculation Glucose Calculated Osmolal ity Lactic Acid Lactic Acid (Sepsi s) 5.7 mmol/L H* mmo l/L (0.5-2.2) Calcium Magnesium Total Bilirubin AST ALT Alkaline Phosphata se Creatine Kinase Troponin T Baselin e 551 ng/L H* ng/L (0-10) Total Protein Albumin Globulin Lipase TSH Free T4 Urine Color Urine Appearance Urine pH Ur Specific Gravit y Urine Protein Urine Glucose (UA) Urine Ketones Urine Blood Urine Nitrate Urine Bilirubin Urine Urobilinogen Ur Leukocyte Zonia ase Urine RBC Urine WBC Ur Squamous Epith Cells Amorphous Sediment Urine Bacteria Serum Ketones SARS-CoV-2 Ag (Rap id) Positive H (Negative) Imaging Data^: Other Imaging: Radiologist's impression: CT head/chest x-ray/CT chest abdomen pelvis -see formal reports. EKG Data^: EKG 1: Attestation: I personally reviewed and interpreted this EKG as follows: EKG interpretation date: 01/22/21 EKG interpretation time: 10:44 Interpretation: Atrial fibrillation with a ventricular rate of 102 beats a minute, normal intervals, nonspecific ST and T wave changes in the lateral and inferior leads, similar to previous. Critical Care Time Critical Care Time: Critical Care Time: Yes Total Critical Care Time: 30 Attestation: Critical care time consisted of assessing the patient's heart rhythm, ACLS algorithms being initiated and monitoring the patient's critical electrolyte abnormalities. Critical care time consisted of discussing the patient's care with family as well as for arranging radiologic studies and discussing the patient's condition with inpatient team. Critical care time was exclusive of billable procedures. Discharge Plan Discharge Patient Disposition: Admitted As Inpatient Clinical Impression: Acute myocardial infarction, Anemia, Hypoglycemia, Rhabdomyolysis, Sepsis, Acute renal failure Condition: Stable Prescriptions: No Action furosemide 40 mg tablet 20 mg PO DAILY RF: 0 trazodone 50 mg tablet 25 mg PO BEDTIME RF: 0 cetirizine 10 mg tablet 10 mg PO DAILY PRN (Reason: Allergy Symptoms) RF: 0 isosorbide mononitrate 30 mg tablet extended release 24 hr 30 mg PO DAILY RF: 0 amlodipine 2.5 mg tablet 2.5 mg PO DAILY RF: 0 Klor-Con M20 20 mEq tablet,ER particles/crystals 10 meq PO DAILY RF: 0 metoprolol tartrate 50 mg tablet 25 mg PO BID RF: 0 nitroglycerin 0.4 mg tablet, sublingual 0.4 mg sublingual DAILY PRN (Reason: Chest Pain) RF: 0 omeprazole 20 mg capsule,delayed release(DR/EC) 20 mg PO DAILY RF: 0 montelukast 10 mg tablet 10 mg PO DAILY PRN (Reason: Allergic Reaction) RF: 0 acetaminophen-codeine 300-60 mg tablet 0.5 tab PO TID PRN (Reason: Pain) RF: 0 timolol maleate 0.5 % drops 1 drp ophthalmic (eye) BID RF: 0 rosuvastatin 40 mg tablet 40 mg PO DAILY RF: 0 lactulose 10 gram/15 mL solution 15 ml PO DAILY PRN (Reason: Constipation) RF: 0 Lumigan 0.01 % drops 1 drp ophthalmic (eye) BEDTIME RF: 0 Referrals: Nadeem Collins MD [Primary Care Provider] - Coding Level of Care Code ED Field Placement Director for Chg Fwd Exam Comprehensive
[2021-01-22] MEDS: ondansetron 2 mg/ML SDV 2 mL 4 MG IVP (10:38)
[2021-01-22] MEDS: sodium chloride 0.9% 1,000 ML 999 ML IV ×3 (10:39→15:40)
[2021-01-22] MEDS: morphine 4 mg/mL SDV 1 mL IVP (11:05)
[2021-01-22 11:17] LABS: Blood Urine 3+ (Negative); Glucose Urine UA Norm (Normal); Ketones Urine Negative (Negative); Nitrate Urine Negative (Negative); Protein Urine 1+ (Negative); Specific Gravity, Urine 1.005 (1.005-1.030); Urine Appearance Cloudy (CLEAR); Urine Color Yellow (Yellow); pH Urine 7 (5-7)
[2021-01-22 11:18] LABS: Add Urine Culture? Yes; Bacteria Urine 4+ /hpf; Bilirubin Urine Neg (Negative); Leukocyte Esterase Urine Negative (Negative); Squamous Epithelial Cell Urine 0-4 /hpf (0-5); Urobilinogen Urine Norm (Negative)
[2021-01-22] MEDS: piperacillin-tazobactam 3.375 GM in sodium chloride 0.9% (plus) 50 ML IV ×2 (11:44→20:21)
[2021-01-22 12:23] LABS: Hematocrit 28.8 % (37.0-47.0); Hemoglobin 9.4 g/dL (11.5-15.3); Lymphocytes # 0.2 10^3/uL (0.8-4.8); Lymphocytes % 7.7 %; Mean Corpuscular HGB Conc 32.6 g/dL (30.0-36.0); Mean Corpuscular Hemoglobin 29.9 pg (28.0-34.0); Mean Corpuscular Volume 91.7 fl (81-99); Mean Platelet Volume 11.5 fL (7.4-10.4); Monocytes % 1.4 %; Neutrophils # 1.51 10^3/uL (1.8-7.7); Neutrophils % 52.8 %; Nucleated Red Blood Cells % 0 %; Platelet Count 73 10^3/cmm (130-400); Red Blood Count 3.14 10^6/uL (4.1-5.3); Red Cell Distribution Width 13.6 % (12.1-15.1); White Blood Count 2.9 10^3/uL (4.0-10.0)
[2021-01-22] MEDS: sodium chloride 0.9% 1,000 ML 100 ML IV (12:34)
[2021-01-22 12:40] LABS: INR 1.08 (0.8-1.2)
[2021-01-22 12:41] LABS: Partial Thromboplastin Time 33.8 SECONDS (23.9-36.7)
[2021-01-22 12:45] LABS: Ketone (Acetest) Serum Negative (Negative)
[2021-01-22 12:55] LABS: Slide Review Slide Review Perform
[2021-01-22 13:05] LABS: Alanine Aminotransferase 23 U/L (0-33); Albumin Level 2.5 g/dL (3.5-5.2); Alkaline Phosphatase 51 IU/L (35-105); Aspartate Amino Transferase 101 U/L (0-32); Blood Urea Nitrogen 36 mg/dL (8-23); Calcium 6.9 mg/dL (8.5-10.5); Carbon Dioxide 18 mmol/L (22-29); Chloride 91 mmol/L (98-107); Globulin 1.5 g/dL (1.3-4.6); Glucose 44 mg/dL (65-115); Lipase 13 U/L (13-60); Magnesium 1.6 mg/dL (1.7-2.3); Osmolality Calculated 273 mOsm/kg (285-295); Sodium 129 mmol/L (136-145); Thyroid Stimulating Hormone 0.44 uIU/mL (0.27-4.20); Total Bilirubin 0.8 mg/dL (0.15-1.2)
[2021-01-22 13:09] LABS: Creatine Phosphokinase 1803 U/L (26-192)
[2021-01-22 13:10] LABS: Lactic Sepsis W/Reflex 4.4 mmol/L (0.5-2.2); Troponin(5th) Baseline 551 ng/L (0-10)
[2021-01-22 13:20] LABS: Reflex Lactate Order REFLEX LACTIC ORDERD
--- NOTE | 2021-01-22 13:30 | CTR_ITS ---
PROCEDURE INFORMATION: Exam: CT Head Without Contrast Exam date and time: 01/22/2021 1:30 PM Age: 85 years old Clinical indication: Coma or unconsciousness; Patient HX: Weakness, PT intubated TECHNIQUE: Imaging protocol: Computed tomography of the head without contrast. Radiation optimization: All CT scans at this facility use at least one of these dose optimization techniques: automated exposure control; mA and/or kV adjustment per patient size (includes targeted exams where dose is matched to clinical indication); or iterative reconstruction. COMPARISON: MR head wo con* [id number] 05/03/2020 11:01 AM RADIATION DOSE METRICS: Total DLP (mGy-cm): 710.32 FINDINGS: Brain: There is subdural hygromas in the bilateral frontal regions. These findings were present on prior examination and appears similar. . No hemorrhage. Unremarkable white matter. No mass effect. Cerebral ventricles: Mild ventriculomegaly appropriate for age. Paranasal sinuses: Visualized sinuses are unremarkable. No fluid levels. Mastoid air cells: Visualized mastoid air cells are well aerated. Bones/joints: Unremarkable. No acute fracture. Soft tissues: Unremarkable. CT/CT head wo con* [id number] IMPRESSION: 1. No acute intracranial abnormality. 2. Stable bilateral frontal subdural hygromas Radiation Dose CTDIVOL = (mGy): DLP = 710.32 (mGy-cm)
[2021-01-22 13:34] LABS: SARS Covid-2 Antigen Positive (Negative)
--- NOTE | 2021-01-22 13:34 | XRR_ITS ---
PROCEDURE INFORMATION: Exam: XR Chest Exam date and time: 01/22/2021 1:34 PM Age: 85 years old Clinical indication: Device placement; Ett placement (vent status); Patient HX: Tube placement TECHNIQUE: Imaging protocol: XR of the chest. Views: 1 view. COMPARISON: CR (CHEST, ) 01/22/2021 11:42 AM FINDINGS: Tubes, catheters and devices: Endotracheal tube is 6.8 cm above the yara. Lungs: Parenchymal densities are now seen in the bilateral upper lobes, and right lower lobe. The left lower lobe parenchymal density shown shows increased volume since prior examination. These findings likely represent pneumonia Pleural spaces: Unremarkable. No pleural effusion. No pneumothorax. Heart/Mediastinum: Unremarkable. No cardiomegaly. Bones/joints: Unremarkable. Intraperitoneal space: Metallic surgical clips are seen in the left upper quadrant of the abdomen. XR/XR chest 1V portable [id number] IMPRESSION: 1. New bilateral parenchymal lung densities likely pneumonia. 2. Endotracheal tube is above the yara. 3. Metallic surgical clips left upper quadrant of the abdomen Radiation Dose CTDIVOL = (mGy): DLP = (mGy-cm)
[2021-01-22 13:37] LABS: Free T4 Free Thyroxine 1.29 ng/dL (0.82-1.77)
[2021-01-22 14:15] LABS: Lactic Acid level (Lactate) 5.7 mmol/L (0.5-2.2)
--- NOTE | 2021-01-22 14:41 | PC.NURSE ---
1319 Pt went into v-fib witnessed by Esthela Altamirano MD and Wendie Hagan, RN. Staff: Esthela Altamirano MD; Wendie Hagan, RN; [place] Shankar, JOHN PAUL; Nida Lopez, JOHN PAUL; Librado from RT. 300 amniodorone, 1 epi - 1319 defiblliation @ 200 (convert to sinus bradycardia) - 1320 Pulse check - 1320 (sinus bradycardia) Intubation (3 1/2 blade, 21 @ lip) - 1324 EJ left neck, - 1326 Potassium drip started 1326 atomidate, 10 vecaronium - [address] End of Note
[2021-01-22 14:45] LABS: ABG PCO2 48.5 mmHg (35-45); Arterial Blood Gas Hematocrit 26.3 % (37-47); Base Excess ABG -18.6 mmol/L (-2.0-2.0); Blood Gas Sample Type Arterial; Carboxyhemoglobin 0.4 %THgb (0.4-20.1); HCO3 ABG 11.8 mmol/L (22-26); HGB O2 Sat 82.7 % (95-100); Methemoglobin 1.4 % (0.4-1.5); Oxygen Saturation ABG 84.2; PO2 ABG 72.7 mmHg (80.0-100.0); Potassium Level - ABG 3.1 mmol/L (3.5-5.0); Total Hemoglobin 8.6 g/dL (12-16)
[2021-01-22 14:46] LABS: Blood Gas Operator Identificat ED; Blood Gas Sample Site Brachial, right; Oxygen Device VENT
--- NOTE | 2021-01-22 14:49 | USCV_ITS ---
Yissel Muñiz Age: 85 Gender: F : 1935 Exam Date: 01/22/2021 15:11 Ordering Phys: Venkata Ochoa MD Technologist: Exam Location: [facility] [place] Indication: FL BP: 116 / 60 HR: 91 Rhythm: Sinus Technical Quality: Adequate MEASUREMENTS (Male / Female) Normal Values 2D ECHO LV Diastolic Diameter PLAX 3.5 cm 4.2 - 5.9 / 3.9 - 5.3 cm LV Systolic Diameter PLAX 2.7 cm IVS Diastolic Thickness 0.9 cm 0.6 - 1.0 / 0.6 - 0.9 cm IVS Systolic Thickness 0.8 cm LVPW Diastolic Thickness 0.8 cm 0.6 - 1.0 / 0.6 - 0.9 cm LVPW Systolic Thickness 1.1 cm LVOT Diameter 2.1 cm LV Ejection Fraction 2C AL 58.7 % LA Diameter 4.4 cm LA Width 6.1 cm LA Height 6.8 cm RA Width 3.1 cm RA Height 3.7 cm DOPPLER AV Peak Velocity 108.0 cm/s LVOT Peak Velocity 73.0 cm/s AV Area Cont Eq vti 2.1 cm squared AV Area Cont Eq pk 2.4 cm squared MV Area PHT 5.0 cm squared Mitral E to A Ratio 2.7 MV E' Velocity 63.0 cm/s Mitral E to MV E' Ratio 8.4 Mitral E to LV E' Lateral Ratio 8.0 Mitral E to LV E' Septal Ratio 8.8 TR Peak Velocity 208.0 cm/s TR Peak Gradient 17.3 mmHg TV Peak E Velocity 90.0 cm/s Right Atrial Pressure 3.0 mmHg Pulmonary Artery Systolic Pressu 20.3 mmHg FINDINGS Left Ventricle Normal left ventricular cavity size. Severely decreased left ventricular systolic function. Mid to distal anterior septal and apical wall dyskinesis.left ventricular ejection fraction is estimated at 35 %. In the presence of atrial fibrillation diastolic function cannot be assessed accurately. Right Ventricle The right ventricle is normal in size and function. Right Atrium The right atrium is normal in size. Left Atrium Moderately increased left atrial size. Mitral Valve Moderately thickened mitral valve. Mild mitral annular calcification. No mitral valve stenosis. Severe mitral valve regurgitation. Aortic Valve Moderate aortic valve calcification. No aortic valve stenosis. Trace aortic valve regurgitation. Tricuspid Valve Moderate tricuspid valve regurgitation. Pulmonic Valve Pulmonic valve not well visualized. Pericardium Normal pericardium without effusion. Aorta Normal ascending aorta dimension. CONCLUSIONS 51-Normal left ventricular cavity size. Severely decreased left ventricular systolic function. Mid to distal anterior septal and apical wall dyskinesis.left ventricular ejection fraction is estimated at 35 %. In the presence of atrial fibrillation diastolic function cannot be assessed accurately. 2-Moderately thickened mitral valve. Mild mitral annular calcification. No mitral valve stenosis. Severe mitral valve regurgitation. 3-Moderate aortic valve calcification. No aortic valve stenosis. Trace aortic valve regurgitation. 4-Moderate tricuspid valve regurgitation. 5-Moderately increased left atrial size. 6-There is no pericardial effusion. 7-Right atrial pressure is around 5 mm of mercury. 8-When compared to the prior echocardiogram dated June 06, 2015 there is worsening of left ventricle function from normal 65% to severely depressed 35% now. There is new wall motion abnormality, segment of anterior septal and apical wall dyskinesis suggestive of possible myocardial infarction in the LAD territory. There is also worsening of mitral valve regurgitation from mild to severe there is worsening of tricuspid valve regurgitation from trace to moderate. Anand Payan MD (Electronically Signed) Final Date: 23 January 2021 18:17 S
[2021-01-22 14:50] LABS: ABG PH Result 6.99 (7.35-7.45)
[2021-01-22] MEDS: dextrose 50% syringe 50 mL IVP (15:00)
[2021-01-22] MEDS: magnesium sulfate premix 2 GM/50 ML PIGGYBACK IV (15:01)
[2021-01-22] MEDS: potassium chloride premix 100 ML 25 MEQ IV ×2 (15:01→18:13)
[2021-01-22] MEDS: calcium gluconate 0.1 gm/mL 10% SDV 10mL 1 GM IVP (15:21)
[2021-01-22 15:27] LABS: Troponin 5 2HR 881.4 ng/L (0-10); Troponin 5 2HR Delta 330.4 ABS# (0-10)
[2021-01-22] MEDS: vancomycin 1,000 MG in sodium chloride 0.9% 250 ML 250 MG IV (15:29)
[2021-01-22] MEDS: lactated ringers 1,000 ML 999 ML IV (15:54)
[2021-01-22 16:15] LABS: Glucose Point of Care 21 mg/dL (70-110)
[2021-01-22 16:15] LABS: Glucose Point of Care 231 mg/dL (70-110)
[2021-01-22 16:20] LABS: Glucose Point of Care 145 mg/dL (70-110)
[2021-01-22] MEDS: heparin 5,000 unit/mL INJ 1 mL 5000 UNIT SUBCUT (16:23)
--- NOTE | 2021-01-22 16:24 | ECG_ITS ---
[facility] Test Date: 2021-01-22 Pat Name: Yissel Muñiz Department: Room: ICU08 Gender: Female Lotus Notes Developer: : 1935 Requested By: Esthela Reece Order Number: [id number] Reading MD: JAYJAY SIMENTAL Measurements Intervals [place] Rate: 107 P: ME: QRS: 26 QRSD: 102 T: 126 QT: 380 QTc: 508 Interpretive Statements SINUS TACHYCARDIA LOW QRS VOLTAGE IN PRECORDIAL LEADS [QRS DEFLECTION < 1.0 mV IN CHEST LEADS] SEPTAL MYOCARDIAL INFARCTION , PROBABLY OLD [40+ ms Q WAVE IN V1/V2] Compared to ECG 01/22/2021 10:23:57 Low QRS voltage now present Myocardial infarct finding now present Atrial fibrillation no longer present T-wave abnormality no longer present Electronically Signed On 01-23-2021 12:58:41 GROUNDS PERSON by JAYJAY SIMENTAL [id number]
--- NOTE | 2021-01-22 16:25 | XRR_ITS ---
PROCEDURE INFORMATION: Exam: XR Chest Exam date and time: 01/22/2021 4:25 PM Age: 85 years old Clinical indication: Device placement; Patient HX: Ng tube placement; Additional info: G tube placement TECHNIQUE: Imaging protocol: XR of the chest. Views: 1 view. COMPARISON: CT chest abd pel wo con 01/22/2021 2:07 PM FINDINGS: Lungs: The parenchymal lung densities are noted in the bilateral upper lobes and in the right lower lobe. Diffuse interstitial congestion is seen throughout the right and left lung. These findings are stable since prior examination Pleural spaces: Unremarkable. No pleural effusion. No pneumothorax. Heart/Mediastinum: Unremarkable. No cardiomegaly. Bones/joints: Unremarkable. Endotracheal tube is 4 cm above the yara. A NG tube is in place the distal side hole is in the distal esophagus this tube should be advanced at least 12 cm. Metallic surgical clips seen in the left upper quadrant XR/XR chest 1V portable [id number] IMPRESSION: 1. Stable parenchymal lung densities bilateral upper lobe and right lower lobe. 2. Stable interstitial congestion throughout the bilateral lungs. 3. NG tube is in place the distal side hole is in the distal esophagus. 4. Endotracheal tube is above the yara. 5. Metallic surgical clips left upper quadrant Radiation Dose CTDIVOL = (mGy): DLP = (mGy-cm)
[2021-01-22 17:55] LABS: ABG PCO2 43.3 mmHg (35-45); Alveolar-Arterial Oxygen Gradi 75.8 mmHg (5-10); Arterial Blood Gas Hematocrit 31.3 % (37-47); Base Excess ABG -23.8 mmol/L (-2.0-2.0); Blood Gas Allen Test Pos; Blood Gas Operator Identificat GD; Blood Gas Sample Site Radial, right; Blood Gas Sample Type Arterial; Carboxyhemoglobin 0.2 %THgb (0.4-20.1); HCO3 ABG 8.3 mmol/L (22-26); HGB O2 Sat 83.3 % (95-100); Ionized Calcium Level - ABG 1.1 mmol/L (1.1-1.4); Methemoglobin 1.3 % (0.4-1.5); Oxygen Device VENT; Oxygen Saturation ABG 84.6; Potassium Level - ABG 3.3 mmol/L (3.5-5.0); Total Hemoglobin 10.2 g/dL (12-16)
[2021-01-22 17:56] LABS: ABG PH Result 6.89 (7.35-7.45)
[2021-01-22] MEDS: dexamethasone 10 mg/mL INJ 6 MG IVP (18:12)
[2021-01-22] MEDS: FUROsemide 10 mg/mL SDV 4mL 40 MG IVP (18:12)
[2021-01-22 18:13] LABS: Platelet Count 80 10^3/cmm (130-400)
[2021-01-22] MEDS: sodium bicarbonate 150 MEQ in dextrose 5% 1,000 ML 50 MEQ IV (18:33)
[2021-01-22 18:54] LABS: Blood Urea Nitrogen 35 mg/dL (8-23); Calcium 6.8 mg/dL (8.5-10.5); Chloride 93 mmol/L (98-107); Glucose 49 mg/dL (65-115); Osmolality Calculated 273 mOsm/kg (285-295); Sodium 129 mmol/L (136-145)
[2021-01-22] MEDS: heparin drip 25,000 UNIT/500 ML PREMIX 16.33 UNIT IV (19:07)
[2021-01-22 19:13] LABS: Anion Gap 31.3 (5-19); Carbon Dioxide 8 mmol/L (22-29); Potassium 3.3 mmol/L (3.5-5.1); Troponin 5 6HR 2174 ng/L (0-10); Troponin 5 6HR Delta 1623 ng/L (0-12)
--- NOTE | 2021-01-22 19:24 | PC.NURSE ---
Pt was admitted to unit at 1620via bed and was intubated with no sedation. Pupils were fixed and no reflexes were present. Mottling on all extremities present. All medications started per orders. Patient belongings in room. Unable to get accurate O2 sat at this time. Dr vo and in room.
--- NOTE | 2021-01-22 19:34 | PC.NURSE ---
MTS notified, referral # [id number]
[2021-01-22] MEDS: phenylephrine inj 25 MG in sodium chloride 0.9% 250 ML 24.24 MG IV (20:18)
--- NOTE | 2021-01-22 20:26 | PM.HP ---
Providers/Chief Complaint Admitting Physician: Venkata Ochoa MD Primary Care Provider: Nadeem Collins MD Chief Complaint: WEAKNESS History of Present Illness Yissel Muñiz is a 85 year old female with past medical history of COPD , coronary artery disease , diabetes,TIA, hypertension. History taking was not possible as patient was intubated in the ER after the code blue. History has been obtained from ER chart review and discussing with the ER physician. came in with chief complaint of generalized weakness going on for a week, as well as shortness of breath, she has not been eating and drinking well for about a week time. While in ER she experienced a V. fib arrest 1345 -ER physician was talking with the patient after completing a rectal exam to evaluate for her anemia. patient was defibrillated once and received 1 dose of epi. She returned with a spontaneous pulse that was atrial fibrillation in nature. Family was notified of the patient's condition. Family wanted patient to be full code. Pertinent imaging studies: CT chest abdomen pelvis: Diffuse bilateral parenchymal lung densities with air bronchograms . These findings correspond to alveolar pneumonia. CT abdomen and pelvis:No acute findings. X-ray chest: Stable parenchymal lung densities bilateral upper lobe and right lower lobe. Endotracheal tube is above the yara. Pertinent labs: WBC 2.9 H&H 9.4/ 28 , PLT : 80 , serum sodium 129 serum potassium : 2 , serum magnesium:1.5, BUN serum creatinine: 36/3.4 , serum glucose 49, lactic acid 4.4, creatinine kinase:18.3, Troponin T baseline 551, 2-hour troponin:881 , 2-hour delta:330, 6-hour troponin:2174, 6-hour delta:1623 EKG: A. fib with RVR, ABG:Ph: 6.99 , PCO2: 48 , PO2: 72 , FiO2 100% Review of Systems General: Reports: ROS unobtainable due to endotracheal tube Medications/Allergies Home Medications Medication Instructions Recorded Confirmed Last Taken Type acetaminophen-codeine 0.5 tab PO TID PRN 11/25/19 11/25/19 11/24/19 History amlodipine 2.5 mg PO DAILY 11/25/19 11/25/19 11/24/19 History bimatoprost [Lumigan] 1 drp OPHTHALMIC (EYE) BEDTIME 11/25/19 11/25/19 11/24/19 History cetirizine 10 mg PO DAILY PRN 11/25/19 11/25/19 Unknown History furosemide 20 mg PO DAILY 11/25/19 11/25/19 11/24/19 History isosorbide mononitrate 30 mg PO DAILY 11/25/19 11/25/19 11/24/19 History lactulose 15 ml PO DAILY PRN 11/25/19 11/25/19 11/24/19 History metoprolol tartrate 25 mg PO BID 11/25/19 11/25/19 11/24/19 History montelukast 10 mg PO DAILY PRN 11/25/19 11/25/19 Unknown History nitroglycerin 0.4 mg SUBLINGUAL DAILY PRN 11/25/19 11/25/19 Unknown History omeprazole 20 mg PO DAILY 11/25/19 11/25/19 11/24/19 History potassium chloride [Klor-Con M20] 10 meq PO DAILY 11/25/19 11/25/19 Unknown History rosuvastatin 40 mg PO DAILY 11/25/19 11/25/19 11/24/19 History timolol maleate 1 drp OPHTHALMIC (EYE) BID 11/25/19 11/25/19 11/24/19 History trazodone 25 mg PO BEDTIME 11/25/19 11/25/19 11/24/19 History Allergies Allergy/AdvReac Type Severity Reaction Status Date / Time acetaminophen [From Percocet] Allergy Unknown Unknown Verified 11/25/19 13:52 meperidine [From Demerol] Allergy Unknown Unknown Verified 11/25/19 13:52 oxycodone [From Percocet] Allergy Unknown Unknown Verified 11/25/19 13:52 PFSH Acute PFSH: Medical History COPD (chronic obstructive pulmonary disease) Coronary artery disease DM type 2 (diabetes mellitus, type 2) Hyperlipidemia Obstructive sleep apnea Osteoarthritis Vitals/I&O/Wt Last Vital Signs Temp 98.7 F 01/22/21 10:18 Pulse 108 H 01/22/21 17:52 Resp 20 H 01/22/21 19:53 BP 91/56 01/22/21 17:52 Pulse Ox 83 L 01/22/21 17:57 01/22/21 01/22/21 01/22/21 06:59 14:59 22:59 Intake Total 1999 3465.56 / 5465.56 Balance 1999 3465.56 / 5465.56 Weight last 48 hrs Weight 54.431 kg Weight 54.431 kg Physical Exam Narrative: EXAM NARRATIVE: Intubated , GCS 3 T, pupils fixed and dilated nonreactive to light HENMT: COMMON NORMALS: normocephalic and atraumatic HEAD & SCALP: normocephalic and atraumatic Resp: AUSCULTATION: diminished lung sounds Cardio: OTHER: Irregularly irregular rhythm S1-S2 variable intensity, no mrg GI: COMMON NORMALS: Normal to inspection, nondistended, normoactive bowel sounds present, Soft to palpation, non-tender, No hepatosplenomegaly present and no masses AUSCULTATION: Yes normoactive bowel sounds PALPATION: Yes Soft to palpation and Yes No hepatosplenomegaly present RECTAL EXAM: deferred Extremity: COMMON NORMALS: no clubbing, cyanosis or edema and no pedal edema Neuro: COMMON NORMALS: patient oriented x3 Urinary Catheter Management^: Cast[place]: Cath Placed During This Visit: yes Reason for Continuing Indwelling Catheter: Accurate Measurement of Urinary Output in Critically Ill Patients Urinary Catheter Date of Insertion: 01/22/21 Urinary Catheter Time of Insertion: 15:00 Data : 01/22/21 18:02 01/22/21 18:02 Micro: Microbiology 01/22/21 12:08 Blood Culture - Preliminary Blood SPECIMEN COLLECTED 01/22/21 12:00 Blood Culture - Preliminary Blood SPECIMEN COLLECTED A&P Assessment and plan (1) Shock: Status: Acute (2) NSTEMI (non-ST elevated myocardial infarction): Status: Acute (3) Respiratory failure with hypoxia: Status: Acute (4) Rhabdomyolysis: Status: Acute (5) Sepsis: Status: Acute (6) Acute renal failure: Status: Acute (7) DM type 2 (diabetes mellitus, type 2): Status: Acute (8) COPD (chronic obstructive pulmonary disease): Status: Acute (9) Hypokalemia: Status: Acute (10) Hyponatremia: Status: Acute (11) Hypomagnesemia: Status: Acute (12) Atrial fibrillation with RVR: Status: Acute (13) Metabolic acidosis: Status: Acute Additional A&P Information #Shock: Likely cardiogenic shock secondary to NSTEMI, complicated by sepsis secondary to pneumonia. Follow 2D echo, monitor serial EKG: Blood culture, urine culture, sputum culture. Monitor x-ray chest. Follow ABG Patient is currently on multiple pressors, empirically covered with broad-spectrum antibiotics.On heparin drip. Patient has received close to 4 L IV fluid in the ER. For acute hypoxic respiratory failure secondary to Covid pneumonia: Patient is currently intubated and on mechanical ventilation. We will initiate dexamethasone as well as remdesivir. #Sepsis secondary to pneumonia: Plan as above #Rhabdomyolysis: Continue to monitor CK, continue with cautious IV hydration #DIVYA on CKD stage III: Likely secondary to severe dehydration secondary to poor oral intake. Monitor BMP, monitor intake output charting, possible renal consult once patient is stabilized. #Hypokalemia: Aggressive IV potassium replacement #Hypovolemic hyponatremia: Monitor BMP , continue IV hydration #Atrial fibrillation with RVR: On amnio drip #Severe metabolic acidosis: Secondary to acute renal failure as well as status post code. Patient received 2 amp of bicarb , and currently on bicarb drip. #S/P cardiac arrest: #Severely guarded prognosis.Family has been updated. Attestations Medical Necessity Statement*: Patient is to be in hospital for management of shock. Anticipated length of stay greater than 2 midnights. Critical Care Time: Critical Care Time (min): 60 Other Attestations: The high probability of a clinically significant, sudden or life threatening deterioration of the patient's [] system(s) required my full and direct attention, intervention and personal management. The critical care time is as shown. 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
--- NOTE | 2021-01-22 20:52 | PM.ACPR ---
Acute Procedures Central Line Placement^: Right Femoral: Time out performed: Yes Patient placed on monitor/pulse ox: Yes MD prep: mask, gown and gloves Central line prep: Chlorhexidine scrub Local anesthesia used: lidocaine 1% Ultrasound used for placement: Yes Central line lumen inserted: triple Post procedure: sutured in place, good blood return, all ports aspirated, flushed, capped and sterile dressing applied Patient tolerated procedure: well and no complications Complications: none
[2021-01-22] MEDS: DOPamine drip 400 MG/250 ML PREMIX 40.82 MG IV (20:57)
[2021-01-22 21:19] LABS: Glucose Point of Care 45 mg/dL (70-110)
[2021-01-22 21:19] LABS: Glucose Point of Care 41 mg/dL (70-110)
--- NOTE | 2021-01-22 22:15 | PC.NURSE ---
Received report on ICU bed 8. Patient intubated, unresponsive, GCS 3. MTS notified, referral #[id number]. Later r/o as a donor d/t covid + result. Patient's rhythm noted to be afib, rates 90-110. Family, Annmarie, notified of ongoings, updated to status of patient. Dr. Vieira made aware of assessments, vitals, clinical labs. Orders received. When patient's heart rate steadily declined, Annmarie notified of critical clinical picture, agreed to make other family members aware. Dr. Vieira, notified. At approx. 2056, CPR performed (see code blue charting). TOD at [address] Vieira. Family to see patient. Patient did not have any belongings with her other than a small ring on her right ring finger. Family asked to keep it on patient. All medications titrated per APR, protocol.
--- NOTE | 2021-01-22 22:30 | PC.NURSE ---
Belongings given to Meseret, patient's daughter, per request.
--- NOTE | 2021-01-23 00:18 | PC.NURSE ---
Patient transferred to home by facility attendant.
[2021-01-23 03:28] VITALS: BP 0/0; PULSE 0; RESP 0; O2SAT 0
--- NOTE | 2021-01-23 22:49 | P.DES_ITS ---
Discharge Providers DDS Date of Admission: 01/22/21 14:35 Date Summary Completed: 01/23/21 Attending Provider at Admission: Venkata Ochoa MD Attending Provider at Discharge: Venkata Ochoa MD Primary Care Provider: Nadeem Collins MD DS Diagnoses Hospital Diagnoses (1) Shock: (2) NSTEMI (non-ST elevated myocardial infarction): (3) Respiratory failure with hypoxia: (4) Rhabdomyolysis: (5) Sepsis: (6) Acute renal failure: (7) DM type 2 (diabetes mellitus, type 2): (8) COPD (chronic obstructive pulmonary disease): (9) Hypokalemia: (10) Hyponatremia: (11) Hypomagnesemia: (12) Atrial fibrillation with RVR: (13) Metabolic acidosis: Reason for Visit Reason for Visit: WEAKNESS Summary Summary Summary: Yissel Muñiz is a 85 year old female with past medical history of COPD , coronary artery disease , diabetes,TIA, hypertension. History taking was not possible as patient was intubated in the ER after the code blue. History has been obtained from ER chart review and discussing with the ER physician. came in with chief complaint of generalized weakness going on for a week, as well as shortness of breath, she has not been eating and drinking well for about a week time. While in ER she experienced a V. fib arrest 1345 -ER physician was talking with the patient after completing a rectal exam to evaluate for her anemia. patient was defibrillated once and received 1 dose of epi. She returned with a spontaneous pulse that was atrial fibrillation in nature. Family was notified of the patient's condition. Family wanted patient to be full code.Pertinent imaging studies:CT chest abdomen pelvis: Diffuse bilateral parenchymal lung densities with air bronchograms . These findings correspond to alveolar pneumonia.CT abdomen and pelvis:No acute findings. X-ray chest: Stable parenchymal lung densities bilateral upper lobe and right lower lobe. Endotracheal tube is above the yara. Pertinent labs:WBC 2.9 H&H 9.4/ 28 , PLT : 80 , serum sodium 129 serum potassium : 2 , serum magnesium:1.5, BUN serum creatinine: 36/3.4 , serum glucose 49, lactic acid 4.4, creatinine kinase:18.3,Troponin T baseline 551, 2-hour troponin:881 , 2-hour delta:330, 6-hour troponin:2174, 6-hour delta:1623EKG: A. fib with RVR,ABG:Ph:6.99 , PCO2: 48 , PO2: 72 , FiO2 100%. 2D Echo : Normal left ventricular cavity size. Severely decreased left ventricular systolic function. Mid to distal anterior septal and apical wall dyskinesis.left ventricular ejection fraction is estimated at 35 %. In the presence of atrial fibrillation diastolic function cannot be assessed accurately. Moderately thickened mitral valve. Mild mitral annular calcification. No mitral valve stenosis. Severe mitral valve regurgitation. Moderate aortic valve calcification. No aortic valve stenosis. Trace aortic valve regurgitation. Moderate tricuspid valve regurgitation. Moderately increased left atrial size. There is no pericardial effusion. Right atrial pressure is around 5 mm of mercury. When compared to the prior echocardiogram dated June 06, 2015 there is worsening of left ventricle function from normal 65% to severely depressed 35% now. There is new wall motion abnormality, segment of anterior septal and apical wall dyskinesis suggestive of possible myocardial infarction in the LAD territory.There is also worsening of mitral valve regurgitation from mild to severe there is worsening of tricuspid valve regurgitation from trace to moderate. Patient was admitted for the management of Shock likley cardiogenic 2/2 to NSTEMI possibly complicated by sepsis 2/2 to PNA as well as severe metabolic acidosis multifactoral ( ARF, Sepsis ) , she was started on heparin drip,plan to follow acs protocol, and to involve cardiology,given the fact that the patient GCS was 3T and pupil were fixed as well as dilated post code with no reflexes , any meaningful outcome was unlikely.Patient condition rapidly detoriated after and she went on multiple pressors, hypothermia protocol was also initaited. She was empirically covered with broad-spectrum antibiotics.received 2 amps of bicarbonate as well as was started on bicarbonate drips.she was also started on amidarone drip for her a.fib with rvr, electrolytes replacement were undertaken. For acute hypoxic respiratory failure secondary to Covid pneumonia: Patient was intubated and on mechanical ventilation. plan was to start dexamethasone as well as remdesivir. for possible Sepsis secondary to pneumonia: Plan as above. #Rhabdomyolysis: Continue to monitor CK, continue with cautious IV hydration.#ARF : Likely secondary to severe dehydration secondary to poor oral intake. Monitor BMP, monitor intake output charting, plan was to consult renal once patient is stabilized. #Hypokalemia: Aggressive IV potassium replacement through central line #Hypovolemic hyponatremia: Monitor BMP , continue IV hydration #S/P cardiac arrest:she was started on hypothermia protocol.Patient failed to respond to such aggressive management and code jasmine was called again at 2056, ACLS protocol was initiated,ROSC was not acheived, TOD at 2114.Family was notified. Additional Data Confirmation of as documented by pronouncing clinician: no pulse, no respirations, no heart sounds and pupils fixed and dilated Family: at bedside Additional persons at bedside: nursing staff Attending/PCP notified?: I am attending Was code activated?: Yes Advance directives?: No (unknown) Hospice patient?: No Discharge Plan Discharge Patient Disposition: Condition: Probable Cause of Probable cause of : Cardiac arrest DS Attestations Time Spent in /Discharge Care*: greater than 30 min Quality - AMI: AMI present?: No Quality - Stroke: CVA present?: No Quality - VTE: VTE present?: No Coding Level of Care Code 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
== END 2021-01-22 23:30 | disposition expired | DRG 871 ==
LOC: ER 15:20 → ICU 15:38
PROVIDERS: Admitting Provider Internal Medicine; Emergency Provider Emergency Medicine; PCP Family Medicine; Visit Provider Internal Medicine
DX: A41.89 Other specified sepsis (principal); J96.01 Acute respiratory failure with hypoxia; U07.1 COVID-19; J12.82 Pneumonia due to coronavirus disease 2019; I21.4 Non-ST elevation (NSTEMI) myocardial infarction; N17.9 Acute kidney failure, unspecified; M62.82 Rhabdomyolysis; E87.1 Hypo-osmolality and hyponatremia; J44.0 Chronic obstructive pulmonary disease with (acute) lower respiratory infection; E87.2 Acidosis; R57.0 Cardiogenic shock; E87.6 Hypokalemia; D64.9 Anemia, unspecified; E86.0 Dehydration; I25.10 Atherosclerotic heart disease of native coronary artery without angina pectoris; I48.91 Unspecified atrial fibrillation; I49.01 Ventricular fibrillation; I46.2 Cardiac arrest due to underlying cardiac condition; R40.2433 Glasgow coma scale score 3-8, at hospital admission; I95.9 Hypotension, unspecified; E11.22 Type 2 diabetes mellitus with diabetic chronic kidney disease; I12.9 Hypertensive chronic kidney disease with stage 1 through stage 4 chronic kidney disease, or unspecified chronic kidney disease; N18.30 Chronic kidney disease, stage 3 unspecified; G47.33 Obstructive sleep apnea (adult) (pediatric); Z86.73 Personal history of transient ischemic attack (TIA), and cerebral infarction without residual deficits
CPT/HCPCS: 31500; 36415; 36416; 36600; 51702; 70450; 71045; 71250; 74176; 80048; 80051; 80053; 81001; 82009; 82330; 82550; 82805; 82962; 83605; 83690; 83735; 84439; 84443; 84484; 85025; 85049; 85610; 85730; 87040; 87070; 87086; 87205; 87426; 93005; 93306; 94002; 94799; 96365; 96366; 96367; 96372; 96375; 99291; 99292; C1751; J0171; J0282; J0461; J0610; J1100; J1265; J1644; J1940; J2270; J2370; J2405; J2543; J3370; J3475; J3480; J3490; J7030; J7050; J7060